=== PATIENT | female | born 1935 | race Caucasian/White ===

== ENCOUNTER 2017-09-30 18:00 | Emergency (ER) | payer OTHER ==
[~2017-09-30] VITALS: Ht 170.2 cm; Wt 72.6 kg
--- NOTE | ~2017-09-30 | EKG ---
[place] [address] [facility] [place] [address] ELECTROCARDIOGRAM REPORT Name: ANIL HAJIYCE [id number] Admission: 09/30/17 Attend Phys: Discharge: 09/30/17 Date of : 37 Report #: [id number] THIS REPORT FOR: //name// [facility] ED Test Date: 2017-09-30 Test Time: 18:56:43 Pat Name: AURA HAJI Department: Room: Gender: F Manager Reading: JANETH : 1935 Requested By: Shiva Brown Order Number: [id number] MD: Adrien Patel Measurements Intervals [place] Rate: 75 P: -21 HI: 133 QRS: -9 QRSD: 103 T: 6 QT: 430 QTc: 481 Interpretive Statements Sinus rhythm Minimal ST depression, lateral leads Compared to ECG 06/25/2012 22:55:36 no significant change was found Electronically Signed On 10-01-2017 7:53:08 NUCLEAR ENGINEER by Adrien Patel [email or web address] <ELECTRONICALLY SIGNED> By: Adrien Patel MD, [facility] 10/01/17 0753 55 55 Adrien Patel MD, FACC /EPI
[~2017-09-30 18:00] MED LIST: ACETAMINOPHEN-1 EAC1 PO
[2017-09-30 19:12] LABS: ABSOLUTE NEUTROPHILS 3.2 thou/uL (1.4-8.2); BASOPHILS 1.2 % (0.0-2.0); HEMATOCRIT 44.1 % (37.0-47.0); HEMOGLOBIN 15.2 gm/dL (12.0-15.0); LYMPHOCYTES 26.5 % (24.0-44.0); MCH 34.4 pg (26.0-34.0); MCHC 34.4 g/dL (28.0-37.0); MCV 100.1 fL (80.0-100.0); MONOCYTES 11.8 % (1.0-8.0); PLATELET COUNT 228 thou/uL (150-400); POLYS 59.5 % (36.0-66.0); WBC 5.4 thou/uL (4.0-11.0)
[2017-09-30 19:19] LABS: ANION GAP 10 mmol/L (7-16); BUN 35 mg/dL (7-18); CALCIUM 8.9 mg/dL (8.5-10.1); CHLORIDE 104 mmol/L (98-107); CO2 28 mmol/L (21-32); CREATININE 0.9 mg/dL (0.6-1.0); GLUCOSE 95 mg/dL (74-106); SODIUM 142 mmol/L (136-145)
[2017-09-30 19:27] LABS: ALBUMIN 3.9 g/dL (3.4-5.0); SGOT 29 U/L (15-37); SGPT 33 U/L (30-65); TOTAL BILIRUBIN 0.7 mg/dL (<0.1-1.0); TOTAL PROTEIN 6.9 g/dL (6.4-8.2); TROPONIN-I < 0.04 ng/mL (<0.06)
[2017-09-30 20:44] LABS: URINE BLOOD NEGATIVE (Negative); URINE CLARITY CLEAR; URINE COLOR YELLOW; URINE GLUCOSE-RANDOM* NEGATIVE (Negative); URINE KETONES 2+ (Negative); URINE LEUKOCYTES-REFLEX NEGATIVE (Negative); URINE NITRITE-REFLEX NEGATIVE (Negative); URINE PROTEIN (DIPSTICK) TRACE (Negative); URINE SPECIFIC GRAVITY >= 1.030 (1.005-1.035); URINE UROBILINOGEN 0.2 E.U./dl (0.2-1.0)
[2017-09-30 20:47] LABS: URINE BILIRUBIN NEGATIVE (Negative)
== END 2017-09-30 21:22 | disposition home or self-care (01) ==
LOC: ER 18:00
PROVIDERS: Physician Assistant
DX: R53.1 Weakness (principal); E87.6 Hypokalemia; G25.2 Other specified forms of tremor; I10 Essential (primary) hypertension; E78.00 Pure hypercholesterolemia, unspecified; Z87.891 Personal history of nicotine dependence

== ENCOUNTER 2020-04-23 20:19 | Emergency (ER) | payer OTHER ==
[~2020-04-23] VITALS: Ht 170.2 cm; Wt 68.0 kg
[2020-04-23 20:45] LABS: HEMATOCRIT 33.7 % (37.0-47.0); HEMOGLOBIN 11.2 gm/dL (12.0-15.0); MCH 35.7 pg (26.0-34.0); MCHC 33.3 g/dL (28.0-37.0); PLATELET COUNT 252 thou/uL (150-400); RBC 3.15 mil/uL (4.20-5.00); WBC 6.3 thou/uL (4.0-11.0)
[2020-04-23 20:53] LABS: CALCIUM 7.8 mg/dL (8.5-10.1); POTASSIUM 3.3 mmol/L (3.5-5.1)
[2020-04-23 21:33] LABS: ABSOLUTE NEUTROPHILS 5.6 thou/uL (1.4-8.2)
[2020-04-23 21:34] LABS: ANISOCYTOSIS 1+; MACROCYTES 2+; PLATELET ESTIMATE NORMAL; POIKILOCYTOSIS 1+
[2020-04-23 22:27] LABS: CALCIUM 7.9 mg/dL (8.5-10.1); CREATININE 0.9 mg/dL (0.6-1.0); POTASSIUM 3.4 mmol/L (3.5-5.1)
[2020-04-23 23:26] VITALS: BP 136/80
--- NOTE | 2020-04-24 09:35 | EKG ---
[facility] [place] [address] ELECTROCARDIOGRAM REPORT Name: AURA HAJI Room #: DEP [facility]#: [id number] Admission: 04/23/20 Attend Phys: Discharge: 04/23/20 Date of : 37 Report #: [id number] THIS REPORT FOR: cc: Asif Francis MD, Thomas P. 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: : 1935 Requested By: Eber Hernandez Order Number: [id number] MD: Adrien Patel Measurements Intervals [place] Rate: 103 P: 37 CO: 157 QRS: -6 QRSD: 107 T: 18 QT: 397 QTc: 520 Interpretive Statements Sinus tachycardia Poor R wave progression Nonspecific T wave abnormality Prolonged QT interval Compared to ECG 09/30/2017 18:56:43 T wave abnormality is now present Prolonged QT interval now present Electronically Signed On 04-24-2020 9:35:19 CDT by Adrien Patel [email or web address] <ELECTRONICALLY SIGNED> By: Adrien Patel MD, [facility] 04/24/20 0935 17 17 Adrien Patel MD, [facility] /EPI
--- NOTE | 2020-04-24 09:37 | EKG ---
[facility] [place] [address] ELECTROCARDIOGRAM REPORT Name: AURA HAJI Room #: DEP [facility]#: [id number] Admission: 04/23/20 Attend Phys: Discharge: 04/23/20 Date of : 37 Report #: [id number] THIS REPORT FOR: cc: Asif Francis MD, Thomas P. 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: : 1935 Requested By: Eber Hernandez Order Number: [id number] MD: Adrien Patel Measurements Intervals [place] Rate: 99 P: 6 OR: 155 QRS: -15 QRSD: 99 T: 4 QT: 388 QTc: 498 Interpretive Statements Sinus rhythm Nonspecific ST segment abnormality Baseline wander in lead(s) V1 Compared to ECG 04/23/2020 21:18:38 Sinus tachycardia no longer present Prolonged QT interval no longer present Electronically Signed On 04-24-2020 9:37:04 CDT by Adiren Patel [email or web address] <ELECTRONICALLY SIGNED> By: Adrien Patel MD, [facility] 04/24/2037 38 38 Adrien Patel MD, [facility] /EPI
== END 2020-04-23 23:27 | disposition home or self-care (01) ==
LOC: ER 20:19
PROVIDERS: Emergency Medicine
DX: E16.2 Hypoglycemia, unspecified (principal); G20 Parkinson's disease; I10 Essential (primary) hypertension; E78.00 Pure hypercholesterolemia, unspecified; Z79.899 Other long term (current) drug therapy; Z87.891 Personal history of nicotine dependence

== ENCOUNTER 2020-10-13 18:59 | Emergency (ER) | payer OTHER ==
[~2020-10-13] VITALS: Ht 170.2 cm; Wt 63.5 kg
--- NOTE | ~2020-10-13 | EMS ---
[facility] [address] [place] [address] EMS Patient Care Report Name: AURA HAJI Room #: REG DARRELL Orellana#: [id number] Admission: 10/13/20 Attend Phys: Discharge: Date of : 37 Report #: [id number] THIS REPORT FOR: //name// Report Transmitted: 10/13/2020 18:59 EMS Care Summary [facility] MED-ACT Incident [id number] @ 10/13/2020 18:20 Incident Location [address] [place] [address] Patient AURA HAIJ Female, 85 Years 1935 Patient Address [address] [place] [address] Patient History Dementia,Alzheimer's,Parkinson's Disease, Patient Allergies No known allergies, Patient Medications Trazodone, Lexapro, Carbidopa, Levothyroxine, Chief Complaint Laceration to face after fall Disposition Transported No Lights/[place] Dispatch Reason Falls Transported To [facility] Narrative This 85 year-old female patient lives at home by herself but has various caregivers that helps take care of her 06/04. She has a history of Parkinson's, dementia along with alcohol abuse. Her caregiver reported that she had been drinking alcohol tonight then went to bed. Sometime later the caregiver heard a [facility] [address] [place] [address] EMS Patient Care Report Name: AURA HAJI Room #: REG DARRELL Orellana#: [id number] Admission: 10/13/20 Attend Phys: Discharge: Date of : 37 Report #: [id number] crash in the hallway and found the patient laying on the floor with a cut to the left side of her face by her eye. EMS was called. The patient doesn't remember what happened and only complained of pain to the center of her forehead rating it 5/10. The patient's inability to remember is normal for this patient. She denied any neck or back pain. Her caregiver stated that she is acting her norm post fall. Upon our arrival the patient was laying supine on the hardwood floor. Blood had covered her hair and was smeared all across her face and on her hands. Bleeding had stopped by the time EMS arrived. She constantly touched her face and spread the blood around her head. She was awake and able to answer questions although confused at times (didn't know the year, didn't know she had fallen...). After exam and vitals assessed. She was able to stand and sit on the cot. Once secured, she was moved to the MICU where a dressing was placed on her head. She was transported non-emergency to [facility]. She remained alert throughout transport, still constantly touching her head. Upon our arrival to the hospital, she was moved to the ED bed in room 3 and report was given to the RN. Initial Vitals @18:32P: 89,R: 16,BP: 127/93,Pain: 5/10,GCS: 14,Temp: 98.1F,SpO2: 97,Revised Trauma: 12, Assessments @18:45MENTAL:Person Oriented,Place Oriented,SKIN:HEENT:Head/Face: Other,Eyes: Left Pupil: 4-mm,Eyes: Right Pupil: 4-mm,Neck/Airway: No Abnormalities,LUNG SOUNDS:General: No Abnormalities,ABDOMEN:General: No Abnormalities,PELVIS//GI:No Abnormalities,EXTREMITIES:Left Arm: No Abnormalities,Right Arm: No Abnormalities,Left Leg: No Abnormalities,Right Leg: No Abnormalities,PULSE:NEURO:Other, Impression Injury of Head Procedures @18:44Surgical Mask on PatientResponse: Unchanged@18:35BandagingResponse: UnchangedSucceeded Timeline 18:19,Call Received 18:19,Psap Call 18:20,Dispatched 18:22,En Route 18:24,On Scene 18:25,At Patient 18:32,BP: 127/93 M,PULSE: 89,RR: 16 R,SPO2: 97 Ox,ETCO2: ,BG: ,PAIN: 5,GCS: 14, [address] [address] EMS Patient Care Report Name: AURA HAJI Room #: REG ADRRELL Orellana#: [id number] Admission: 10/13/20 Attend Phys: Discharge: Date of : 37 Report #: [id number] 18:35,Bandaging,Response: UnchangedSucceeded, 18:41,Depart Scene 18:44,Surgical Mask on Patient,Response: Unchanged 18:54,At Destination 19:08,Call Closed Disclaimer v1.1 Copyright 2020 [employer] This EMS Care Summary contains data elements from the applicable legal record (which may be displayed differently). It is designed to provide pertinent information for the following purposes: continuity of care, clinical quality, and state data reporting. The complete legal record is available to ED staff and administrators of the receiving hospital in [employer] Patient Tracker. All data is provided "as is."
--- NOTE | ~2020-10-13 | EMS ---
[facility] [address] [place] [address] EMS Patient Care Report Name: AURA HAJI Room #: DEP DARRELL Orellana#: [id number] Admission: 10/13/20 Attend Phys: Discharge: 10/13/20 Date of : 36 Report #: [id number] THIS REPORT FOR: //name// Report Transmitted: 10/16/2020 16:55 EMS Care Summary [facility] MED-ACT Incident [id number] @ 10/13/2020 18:20 Incident Location [address] [place] [address] Patient AURA HAJI Female, 85 Years 1935 Patient Address [address] [place] [address] Patient History Dementia,Alzheimer's,Parkinson's Disease, Patient Allergies No known allergies, Patient Medications Trazodone, Lexapro, Carbidopa, Levothyroxine, Chief Complaint Laceration to face after fall Disposition Transported No Lights/[place] Dispatch Reason Falls Transported To [facility] Narrative This 85 year-old female patient lives at home by herself but has various caregivers that helps take care of her 06/04. She has a history of Parkinson's, dementia along with alcohol abuse. Her caregiver reported that she had been drinking alcohol tonight then went to bed. Sometime later the caregiver heard a [facility] [address] [place] [address] EMS Patient Care Report Name: AURA HAJI Room #: DEP Esteban#: [id number] Admission: 10/13/20 Attend Phys: Discharge: 10/13/20 Date of : 37 Report #: [id number] crash in the hallway and found the patient laying on the floor with a cut to the left side of her face by her eye. EMS was called. The patient doesn't remember what happened and only complained of pain to the center of her forehead rating it 5/10. The patient's inability to remember is normal for this patient. She denied any neck or back pain. Her caregiver stated that she is acting her norm post fall. Upon our arrival the patient was laying supine on the hardwood floor. Blood had covered her hair and was smeared all across her face and on her hands. Bleeding had stopped by the time EMS arrived. She constantly touched her face and spread the blood around her head. She was awake and able to answer questions although confused at times (didn't know the year, didn't know she had fallen...). After exam and vitals assessed. She was able to stand and sit on the cot. Once secured, she was moved to the MICU where a dressing was placed on her head. She was transported non-emergency to [facility]. She remained alert throughout transport, still constantly touching her head. Upon our arrival to the hospital, she was moved to the ED bed in room 3 and report was given to the RN. Initial Vitals @18:32P: 89,R: 16,BP: 127/93,Pain: 5/10,GCS: 14,Temp: 98.1F,SpO2: 97,Revised Trauma: 12, Assessments @18:45MENTAL:Person Oriented,Place Oriented,SKIN:HEENT:Head/Face: Other,Eyes: Left Pupil: 4-mm,Eyes: Right Pupil: 4-mm,Neck/Airway: No Abnormalities,LUNG SOUNDS:General: No Abnormalities,ABDOMEN:General: No Abnormalities,PELVIS//GI:No Abnormalities,EXTREMITIES:Left Arm: No Abnormalities,Right Arm: No Abnormalities,Left Leg: No Abnormalities,Right Leg: No Abnormalities,PULSE:NEURO:Other, Impression Injury of Head Procedures @18:44Surgical Mask on PatientResponse: Unchanged@18:35BandagingResponse: UnchangedSucceeded Timeline 18:19,Call Received 18:19,Psap Call 18:20,Dispatched 18:22,En Route 18:24,On Scene 18:25,At Patient 18:32,BP: 127/93 M,PULSE: 89,RR: 16 R,SPO2: 97 Ox,ETCO2: ,BG: ,PAIN: 5,GCS: 14, [address] [address] EMS Patient Care Report Name: RAISSAAURA Room #: DEP DARRELL Orellana#: [id number] Admission: 10/13/20 Attend Phys: Discharge: 10/13/20 Date of : 37 Report #: [id number] 18:35,Bandaging,Response: UnchangedSucceeded, 18:41,Depart Scene 18:44,Surgical Mask on Patient,Response: Unchanged 18:54,At Destination 19:08,Call Closed Disclaimer v1.1 Copyright 2020 [employer] This EMS Care Summary contains data elements from the applicable legal record (which may be displayed differently). It is designed to provide pertinent information for the following purposes: continuity of care, clinical quality, and state data reporting. The complete legal record is available to ED staff and administrators of the receiving hospital in [employer]'s Patient Tracker. All data is provided "as is."
[2020-10-13] MEDS ORDERED: LOSARTAN-HCTZ1 EAC2 PO (19:25)
[2020-10-13] MEDS ORDERED: LEXAPRO 10 MG T10 M2 PO (19:26)
[2020-10-13] MEDS ORDERED: CARBIDOPA-LEVO1 EAC9 PO (19:26)
[2020-10-13] MEDS ORDERED: TRAZODONE HCL50 MG PO (19:27)
[2020-10-13 20:27] VITALS: BP 129/72
== END 2020-10-13 20:20 | disposition home or self-care (01) ==
LOC: ER 18:59
DX: S01.81XA Laceration without foreign body of other part of head, initial encounter (principal); S60.222A Contusion of left hand, initial encounter; I10 Essential (primary) hypertension; Z87.891 Personal history of nicotine dependence; Z79.899 Other long term (current) drug therapy; W19.XXXA Unspecified fall, initial encounter; Y93.89 Activity, other specified; Y92.89 Other specified places as the place of occurrence of the external cause; Y99.8 Other external cause status

== ENCOUNTER 2021-08-31 21:22 | Emergency (ER) | payer OTHER ==
[~2021-08-31] VITALS: Ht 170.2 cm; Wt 65.8 kg
--- NOTE | ~2021-08-31 | EMS ---
[address] [address] EMS Patient Care Report Name: AURA HAJI Room #: REG DARRELL Orellana#: [id number] Admission: 08/31/21 Attend Phys: Discharge: Date of : 37 Report #: [id number] THIS REPORT FOR: //name// Report Transmitted: 08/31/2021 20:51 EMS Care Summary [facility] MED-ACT Incident [id number] @ 08/31/2021 20:40 Incident Location [facility] [address] [place] [address] Patient AURA HAJI Female, 86 Years 1935 Patient Address [address] [place] [address] Patient History Hypertension (HTN),Alzheimer's, Patient Allergies No known allergies, Patient Medications Seroquel, Trazodone, Chief Complaint pain to forehead Disposition Transported No Lights/[place] Dispatch Reason Falls Transported To [facility] Narrative dispatch: medic [id number] dispatched to an assisted living facility for a report of a fall. medic 1134 immediately responded to the scene without delay. [address] [address] EMS Patient Care Report Name: AURA HAJI Room #: REG Esteban#: [id number] Admission: 08/31/21 Attend Phys: Discharge: Date of : 37 Report #: [id number] chief complaint: upon arrival to the scene ems entered a first floor apartment to find an 86 y/o female pt supine on a couch. pt alert, slow to respond to questions. pt complains of pain to her forehead. history of present illness: pt's home health aide states pt was ambulating in her apartment when she lost her balance and fell forward striking her forehead on the floor. aide denied loss of consciousness. aide assisted pt from the floor to the couch and summoned ems. home health aide reports moderate alcohol intake by pt, which is her normal evening routine. assessment: als assessment performed, findings noted within report. pertinent findings include pt oriented to person only. pt's son contacted via telephone states that to be pt baseline secondary to a diagnosed history of Alzheimer's. ems further notes swelling to pt forehead above her right eye. ems notes a small laceration to the area with no active bleeding. rendered treatment: assessment, vital signs, ekg, transport. transport: pt's son requests transport to [facility]. pt stood with assistance and sat on stretcher. stretcher transferred to ambulance lifted and secured. pt continuously monitored through out transport for changes in condition. upon arrival to the receiving facility pt transferred to er bed using a draw sheet. verbal report given to attending staff and transfer of care complete. Initial Vitals @21:05P: 211,SpO2: 94, @21:05P: 87,SpO2: 92, @21:15P: 85,SpO2: 93, @21:00P: 82,SpO2: 93, @21:19P: 93,R: 16,BP: 152/94,Pain: 2/10,GCS: 14,SpO2: 95,Revised Trauma: 12,IN Suspected: false @21:08P: 83,R: 16,BP: 148/95,Pain: 2/10,GCS: 14,SpO2: 93,Revised Trauma: 12, @20:56P: 93,R: 16,BP: 171/125,Pain: 2/10,GCS: 14,Temp: 98.2F,SpO2: 93,Revised Trauma: 12, Impression Injury of Face Procedures @20:50 ALS Assessment Response: UnchangedSucceeded @20:55 Surgical Mask on Patient Response: Unchanged @21:05 IV Therapy - Saline Lock 10cc (20 ga) Site: Forearm-Left Response: UnchangedSucceeded [address] [address] EMS Patient Care Report Name: ANIL HAJIYCE Room #: REG DARRELL Orellana#: [id number] Admission: 08/31/21 Attend Phys: Discharge: Date of : 37 Report #: [id number] Timeline 20:37,Call Received 20:37,Psap Call 20:40,Dispatched 20:41,En Route 20:45,On Scene 20:49,At Patient 20:50,ALS Assessment,Response: UnchangedSucceeded, 20:55,Surgical Mask on Patient,Response: Unchanged 20:56,BP: 171/125 M,PULSE: 93,RR: 16 R,SPO2: 93 Ox,ETCO2: ,BG: ,PAIN: 2,GCS: 14, 21:00,BP: / M,PULSE: 82,RR: R,SPO2: 93 Ox,ETCO2: ,BG: ,PAIN: ,GCS: , 21:05,BP: / M,PULSE: 211,RR: R,SPO2: 94 Ox,ETCO2: ,BG: ,PAIN: ,GCS: , 21:05,IV Therapy - Saline Lock 10cc 20 ga Site: Forearm-Left,Response: UnchangedSucceeded, 21:05,BP: / M,PULSE: 87,RR: R,SPO2: 92 Ox,ETCO2: ,BG: ,PAIN: ,GCS: , 21:08,Depart Scene 21:08,BP: 148/95 M,PULSE: 83,RR: 16 R,SPO2: 93 Ox,ETCO2: ,BG: ,PAIN: 2,GCS: 14, 21:15,BP: / M,PULSE: 85,RR: R,SPO2: 93 Ox,ETCO2: ,BG: ,PAIN: ,GCS: , 21:19,BP: 152/94 M,PULSE: 93,RR: 16 R,SPO2: 95 Ox,ETCO2: ,BG: ,PAIN: 2,GCS: 14, 21:20,At Destination 21:37,Call Closed Disclaimer v1.1 Copyright 2020 [employer] This EMS Care Summary contains data elements from the applicable legal record (which may be displayed differently). It is designed to provide pertinent information for the following purposes: continuity of care, clinical quality, and state data reporting. The complete legal record is available to ED staff and administrators of the receiving hospital in [employer]'s Patient Tracker. All data is provided "as is."
[~2021-08-31 21:22] MED LIST changes: +CARBIDOPA-LEVO1 EAC9 PO; +LEXAPRO 10 MG T10 M2 PO; +LOSARTAN-HCTZ1 EAC2 PO; +TRAZODONE HCL50 MG PO
[2021-08-31 23:44] VITALS: BP 109/81
== END 2021-08-31 23:56 | disposition home or self-care (01) ==
LOC: ER 21:22
DX: S00.93XA Contusion of unspecified part of head, initial encounter (principal); I10 Essential (primary) hypertension; Z79.899 Other long term (current) drug therapy; Z87.891 Personal history of nicotine dependence; W19.XXXA Unspecified fall, initial encounter; Y93.89 Activity, other specified; Y92.89 Other specified places as the place of occurrence of the external cause; Y99.8 Other external cause status

== ENCOUNTER 2021-10-03 23:57 | Emergency (ER) | payer OTHER ==
[~2021-10-03] VITALS: Ht 170.2 cm; Wt 65.8 kg
--- NOTE | ~2021-10-03 | EMS ---
[address] [address] EMS Patient Care Report Name: AURA HAJI Room #: DEP DARRELL Orellana#: [id number] Admission: 10/03/21 Attend Phys: Discharge: 10/04/21 Date of : 36 Report #: [id number] THIS REPORT FOR: //name// Report Transmitted: 10/07/2021 15:24 EMS Care Summary [facility] #2 Incident [id number] @ 10/03/2021 23:09 Incident Location [address] [place] [address] Patient AURA HAJI Female, 86 Years 1935 Patient Address [facility] [place] [address] Patient History Alzheimer's,Parkinson's Disease, Patient Medications Losartan, Chief Complaint I fell and hurt my shoulder Disposition Patient Treated, Transferred Care to Another EMS Professional/Unit Dispatch Reason Falls Transported To [facility] Narrative E23 arrived on scene and found pt laying on her floor. Pt complained of falling and hurting her left shoulder. E23 assessed and gathered information as listed. M1134 arrived on scene and report was given. M1134 assumed pt care. E23 assisted with helping load the pt onto the cot and into the [address] [address] EMS Patient Care Report Name: AURA HAJI Room #: DEP Esteban#: [id number] Admission: 10/03/21 Attend Phys: Discharge: 10/04/21 Date of : 37 Report #: [id number] ambulance. See M1134's report for details. Further history and med list could not be attained as there was no information available from the care facility and the caretakers she uses were not able to provide information by phone, meds were locked in a lockbox. Hospital and information gathered was provided by calling her son. E23 cleared. Initial Vitals @23:18P: 85,R: 20,BP: 177/128,Pain: 6/10,GCS: 15,SpO2: 97,Revised Trauma: 12, Impression Injury of Shoulder or Upper Arm Timeline 23:08,Call Received 23:08,Psap Call 23:09,Dispatched 23:11,En Route 23:13,On Scene 23:16,At Patient 23:18,BP: 177/128 M,PULSE: 85,RR: 20 R,SPO2: 97 Ox,ETCO2: ,BG: ,PAIN: 6,GCS: 15, 23:41,Call Closed Disclaimer v1.1 Copyright 2021 [employer] This EMS Care Summary contains data elements from the applicable legal record (which may be displayed differently). It is designed to provide pertinent information for the following purposes: continuity of care, clinical quality, and state data reporting. The complete legal record is available to ED staff and administrators of the receiving hospital in [employer]'s Patient Tracker. All data is provided "as is."
--- NOTE | ~2021-10-03 | EMS ---
[address] [address] EMS Patient Care Report Name: AURA HAJI Room #: DEP DARRELL Orellana#: [id number] Admission: 10/03/21 Attend Phys: Discharge: 10/04/21 Date of : 37 Report #: [id number] THIS REPORT FOR: //name// Report Transmitted: 10/04/2021 07:41 EMS Care Summary [facility] MED-ACT Incident [id number] @ 10/03/2021 23:09 Incident Location [address] [place] [address] Patient AURA HAJI Female, 86 Years 1935 Patient Address [address] [place] [address] Patient History Hypertension (HTN),Alzheimer's, Patient Allergies No known allergies, Patient Medications Trazodone, Seroquel, Losartan, Carbidopa, Chief Complaint left shoulder pain Disposition Transported No Lights/[place] Dispatch Reason Falls Transported To [facility] Narrative We were dispatched to the listed location for a code two fall. Upon our arrival, we found the patient lying supine on the floor, in no obvious distress [address] [address] EMS Patient Care Report Name: AURA HAJI Room #: DEP Esteban#: [id number] Admission: 10/03/21 Attend Phys: Discharge: 10/04/21 Date of : 37 Report #: [id number] and in the care of . The patient was alert and confused with a GCS of 14 which is her baseline mental status. The patient is a 75 year old female who apparently fell in her apartment tonight. The patient was unable to provide any information as to how or why she fell. She complained of pain to the left shoulder which she rated 3/10. The patient denied pain to her neck, back, hips or head. Additionally, the patient denied dyspnea, abdominal pain, nausea/vomiting, dizziness or any other complaints. The patient was unable to provide any further information. We were able to contact her son via phone who requested transport to [facility]. After an assessment and vitals, a sling and swath was applied to the patient's left arm. This improved the patient's pain. Then she was lifted to the cot and secured per policy. There were no other changes in her condition and care was transferred without incident. 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,BP: 142/90 M,PULSE: 92,RR: 16 R,SPO2: 97 Ox,ETCO2: ,BG: ,PAIN: ,GCS: , 23:08,Call Received 23:08,Psap Call 23:09,Dispatched 23:10,En Route 23:14,On Scene 23:22,At Patient 23:24,ALS Assessment,Response: UnchangedSucceeded, 23:34,BP: 141/92 M,PULSE: 96,RR: 18 R,SPO2: 96 Ox,ETCO2: ,BG: ,PAIN: 3,GCS: 14, 23:42,Depart Scene 23:45,BP: 169/99 M,PULSE: 96,RR: 16 R,SPO2: 95 Ox,ETCO2: ,BG: ,PAIN: ,GCS: , 23:49,BP: 179/89 M,PULSE: 90,RR: 16 R,SPO2: 96 Ox,ETCO2: ,BG: ,PAIN: ,GCS: , 23:55,At Destination [address] [address] EMS Patient Care Report Name: AURA HAJI [id number] Admission: 10/03/21 Attend Phys: Discharge: 10/04/21 Date of : 37 Report #: [id number] 00:13,Call Closed Disclaimer v1.1 Copyright 2021 [employer] This EMS Care Summary contains data elements from the applicable legal record (which may be displayed differently). It is designed to provide pertinent information for the following purposes: continuity of care, clinical quality, and state data reporting. The complete legal record is available to ED staff and administrators of the receiving hospital in [facility]'s Patient Tracker. All data is provided "as is."
--- NOTE | ~2021-10-03 | EMS ---
[address] [address] EMS Patient Care Report Name: AURA HAJI Room #: REG DARRELL Orellana#: [id number] Admission: 10/03/21 Attend Phys: Discharge: Date of : 37 Report #: [id number] THIS REPORT FOR: //name// Report Transmitted: 10/04/2021 00:43 EMS Care Summary [facility] Incident [id number] @ 10/03/2021 23:09 Incident Location [facility] [place] [address] Patient AURA HAJI Female, 86 Years 1935 Patient Address [facility] [place] [address] Patient History Hypertension (HTN),Alzheimer's, Patient Allergies No known allergies, Patient Medications Trazodone, Seroquel, Losartan, Carbidopa, Chief Complaint left shoulder pain Disposition Transported No Lights/Alice Dispatch Reason Falls Transported To [facility] Narrative We were dispatched to the listed location for a code two fall. Upon our arrival, we found the patient lying supine on the floor, in no obvious distress [address] [address] EMS Patient Care Report Name: AURA HAJI Room #: REG Esteban#: [id number] Admission: 10/03/21 Attend Phys: Discharge: Date of : 37 Report #: [id number] and in the care of FD. The patient was alert and confused with a GCS of 14 which is her baseline mental status. The patient is a 75 year old female who apparently fell in her apartment tonight. The patient was unable to provide any information as to how or why she fell. She complained of pain to the left shoulder which she rated 3/10. The patient denied pain to her neck, back, hips or head. Additionally, the patient denied dyspnea, abdominal pain, nausea/vomiting, dizziness or any other complaints. The patient was unable to provide any further information. We were able to contact her son via phone who requested transport to [facility]. After an assessment and vitals, a sling and swath was applied to the patient's left arm. This improved the patient's pain. Then she was lifted to the cot and secured per policy. There were no other changes in her condition and care was transferred without incident. Initial Vitals @23:45P: 96,R: 16,BP: 169/99,SpO2: 95, @23:49P: 90,R: 16,BP: 179/89,SpO2: 96, @PTAP: 92,R: 16,BP: 142/90,SpO2: 97, @23:34P: 96,R: 18,BP: 141/92,Pain: 3/10,GCS: 14,Temp: 97.2F,SpO2: 96,Revised Trauma: 12, Impression Injury Procedures @23:24 ALS Assessment Response: UnchangedSucceeded Timeline NURSES' REGISTRY DIRECTOR,BP: 142/90 M,PULSE: 92,RR: 16 R,SPO2: 97 Ox,ETCO2: ,BG: ,PAIN: ,GCS: , 23:08,Call Received 23:08,Psap Call 23:09,Dispatched 23:10,En Route 23:14,On Scene 23:22,At Patient 23:24,ALS Assessment,Response: UnchangedSucceeded, 23:34,BP: 141/92 M,PULSE: 96,RR: 18 R,SPO2: 96 Ox,ETCO2: ,BG: ,PAIN: 3,GCS: 14, 23:42,Depart Scene 23:45,BP: 169/99 M,PULSE: 96,RR: 16 R,SPO2: 95 Ox,ETCO2: ,BG: ,PAIN: ,GCS: , 23:49,BP: 179/89 M,PULSE: 90,RR: 16 R,SPO2: 96 Ox,ETCO2: ,BG: ,PAIN: ,GCS: , 23:55,At Destination [address] [address] EMS Patient Care Report Name: AURA HAJI Room #: REG [facility]#: [id number] Admission: 10/03/21 Attend Phys: Discharge: Date of : 37 Report #: [id number] 00:13,Call Closed Disclaimer [email or web address] Copyright 2021 [employer] This EMS Care Summary contains data elements from the applicable legal record (which may be displayed differently). It is designed to provide pertinent information for the following purposes: continuity of care, clinical quality, and state data reporting. The complete legal record is available to ED staff and administrators of the receiving hospital in [facility]'s Patient Tracker. All data is provided "as is."
[2021-10-04 00:30] VITALS: BP 170/102
[2021-10-04] MEDS ORDERED: NORCO5 PO (02:13)
== END 2021-10-04 02:44 | disposition home or self-care (01) ==
LOC: ER 23:57
DX: S42.292A Other displaced fracture of upper end of left humerus, initial encounter for closed fracture (principal); I10 Essential (primary) hypertension; G20 Parkinson's disease; Z79.899 Other long term (current) drug therapy; Z87.891 Personal history of nicotine dependence; W18.30XA Fall on same level, unspecified, initial encounter; Y93.89 Activity, other specified; Y92.89 Other specified places as the place of occurrence of the external cause; Y99.8 Other external cause status